=== PATIENT | male | born 1950 | race Caucasian/White ===

== ENCOUNTER 2017-10-21 09:40 | Day surgery (SDC) | payer OTHER ==
[~2017-10-21] VITALS: Ht 175.3 cm; Wt 98.0 kg
[~2017-10-21 09:40] MED LIST: ALEVE220 M2 PO; DAILY VALUE1 EACH PO; FISH OIL PO; FLAX SEED OIL1 EACH PO; MILK THISTLE PO; MOBIC15 MG PO; NATURAL LUTEIN20 MG PO; NEXIUM40 MG PO; PROBIOTIC1 EAC1 PO; SAW PALMETTO450 MG PO; SIMVASTATIN10 M1 PO; TUMERIC PO; VITAMIN B12 PO; VITAMIN C PO; ZANTAC150 MG PO; ZINC PO; ZOCOR5 MG PO; [UNRECOGNIZED DRUG - OTHER] PO
[2017-10-21] MEDS ORDERED: TYLENOL EXTRA500 MG PO (10:09)
[2017-10-21 10:11] VITALS: BP 109/59
[2017-10-21] MEDS ORDERED: FLONASE ALLERG9.9 ML BOTH NARES (10:20)
[2017-10-21 10:28] LABS: BASOPHIL (%) 0.3 % (0-1); EOSINOPHIL (%) 2.1 % (0-5); EOSINOPHIL COUNT 0.1 K/uL (0-0.3); HEMATOCRIT 46.9 % (38.0-50.0); IMMATURE GRANULOCYTE (%) 0.2 % (0.0-0.7); LYMPHOCYTE (%) 28.6 % (15-42); LYMPHOCYTE COUNT 1.7 K/uL (1.0-2.8); MCHC 34.1 G/DL (30.0-36.0); MONOCYTE (%) 6.9 % (3-12); MONOCYTE COUNT 0.4 K/uL (0-0.8); NEUTROPHIL (%) 61.9 % (45-76); NEUTROPHIL COUNT 3.8 K/uL (1.8-6.4); PLATELET COUNT 207 K/uL (156-360); RBC DIS.WIDTH-CV 12.4 % (11.8-14.6); RBC DIS.WIDTH-SD 38.4 % (39-53); RED BLOOD COUNT 5.52 M/uL (4.00-5.50); WHITE BLOOD COUNT 6.1 K/uL (4.1-10.2)
[2017-10-21 10:33] LABS: INTER. NORMALIZED RATIO 1.1
[2017-10-21 10:36] LABS: PTT 27.7 SEC (25-37)
[2017-10-21 10:53] LABS: ALBUMIN 4.2 G/DL (3.2-4.8); ALKALINE PHOSPHATASE 37 IU/L (3-129); ALT (GPT) 16 IU/L (3-49); AST (GOT) 16 IU/L (2-34); CHLORIDE 107 MEQ/L (99-109); CREATININE 1.1 MG/DL (0.6-1.3); GFR ESTIMATE (CALCULATED) > 59 mL/min/ (58.99-99999); GLUCOSE 99 mg/dL (70-99); POTASSIUM 4.3 MEQ/L (3.7-5.4); SODIUM 142 MEQ/L (136-147); TOTAL BILIRUBIN 0.8 MG/DL (0.0-1.0); TOTAL PROTEIN 6.8 G/DL (6.4-8.3); UREA NITROGEN (BUN) 11 mg/dL (9-23)
[2017-10-21] MEDS ORDERED: HYDROCODON-ACE1 EAC7 PO (15:40)
[2017-10-21] MEDS ORDERED: COLACE100 MG PO (15:40)
[2017-10-21 16:00] VITALS: BP 134/79
[2017-10-21 17:20] VITALS: BP 133/64
== END 2017-10-21 17:35 | disposition home or self-care (01) ==
LOC: SDC 09:40
PROVIDERS: Thoracic Surgery (Cardiothoracic Vascular Surgery)
PROC: 0WUF0JZ Supplement Abdominal Wall with Synthetic Substitute, Open Approach (ICD-10-PCS; principal; 2017-10-21)
DX: K43.6 Other and unspecified ventral hernia with obstruction, without gangrene (principal); Z90.49 Acquired absence of other specified parts of digestive tract; Z87.891 Personal history of nicotine dependence; N40.0 Benign prostatic hyperplasia without lower urinary tract symptoms; H53.003 Unspecified amblyopia, bilateral; H91.90 Unspecified hearing loss, unspecified ear; Z82.49 Family history of ischemic heart disease and other diseases of the circulatory system; Z82.3 Family history of stroke; Z84.1 Family history of disorders of kidney and ureter; Z83.3 Family history of diabetes mellitus
CPT/HCPCS: 80053; 85025; 85610; 85730; C1781; J0330; J0690; J0696; J1100; J1170; J1885; J2405; J2710; J3010; J7643